=== PATIENT | female | born 1990 | race Hispanic/Latino ===

== ENCOUNTER 2017-08-10 21:53 | Inpatient (IN) | payer BC ==
[2017-08-10] MEDS ORDERED: LACTATED RINGERS 1,000 ML ONE (22:33)
[2017-08-10] MEDS ORDERED: ZOFRAN IV PRN (22:39)
[2017-08-10] MEDS ORDERED: XYLOCAINE 2% INFILTRATI ONE (22:39)
[2017-08-10] MEDS ORDERED: BRETHINE SUB-Q PRN (22:39)
[2017-08-10] MEDS ORDERED: BRETHINE IVP PRN (22:39)
[2017-08-10] MEDS ORDERED: ePHEDrine SULFATE IV PRN ×2 (22:39→23:28)
[2017-08-10] MEDS ORDERED: MINERAL OIL PO PRN (22:39)
[2017-08-10] MEDS ORDERED: STADOL IV PRN (22:39)
[2017-08-10] MEDS ORDERED: SUBLIMAZE IV PRN (22:39)
[2017-08-10] MEDS ORDERED: NARCAN 0.4 MG/1 ML IV PRN (22:39)
[2017-08-10] MEDS: LACTATED RINGERS 1,000 ML IV SCH ×2 (22:45→23:35)
[2017-08-10 22:56] LABS: Hematocrit 36.7 % (30.3-42.9); Hemoglobin 12.4 gm/dl (10.1-14.3); Mean Corpuscular HGB Conc 34 % (30-34); Mean Corpuscular Hemoglobin 32 pg (28-32); Mean Corpuscular Volume 94 fl (79-97); Platelet Count 144 K/mm3 (140-440); Red Blood Count 3.92 M/mm3 (3.65-5.03); Red Cell Distribution Width 14.7 % (13.2-15.2)
[2017-08-10] MEDS ORDERED: PITOCin/NS 20 UNIT/1000ML DRIP 20 UNITS/1,000 ML BAG IV SCH (23:00)
[2017-08-10] MEDS ORDERED: PITOCin/NS 30 UNIT/500ML 30 UNITS/500 ML BAG IV SCH (23:00)
[2017-08-10] MEDS ORDERED: NARCAN 2 MG/2 ML IV PRN (23:28)
[2017-08-10] MEDS ORDERED: fentaNYL-BUPIV 2 MCG/ML-0.125% 200 MCG/100 ML BAG EPIDURAL SCH (23:45)
--- NOTE | 2017-08-11 00:03 | History and Physical Report ---
History of Present Illness Date of examination: 08/10/17 Date of admission: 08/10/17 22:52 Chief complaint: contractions History of present illness: Pt is a 26 year old ALVARADO 08/18/17 at 38w6d who presents with contractions since this evening and was noted to be 5 cm dilated. She denies vaginal bleeding or leakage of fluid. She has had care at [facility] with Dr Katey Gómez that has been uncomplicated. She is GBS negative. Past History Past Surgical History: breast surgery (breast augmentation ), other (wisdom tooth extraction ) Family/Genetic History: none Social history: no significant social history, - Obstetrical History Expected Date of Delivery: 08/18/17 Actual Gestation: 39 Week(s) 0 Day(s) : 3 Para: 2 Hx # Term Pregnancies: 2 Number of Pregnancies: 0 Spontaneous Abortions: 0 Induced : 0 Number of Living Children: 2 Medications and Allergies Allergies Allergy/AdvReac Type Severity Reaction Status Date / Time Fish Containing Products Allergy Anaphylaxis Verified 08/10/17 22:06 Active Meds: Active Medications Butorphanol Tartrate (Stadol) 2 mg IV Q2H PRN PRN Reason: Pain , Severe (7-10) Ephedrine Sulfate (Ephedrine Sulfate) 10 mg IV Q2M PRN PRN Reason: Hypotension Fentanyl (Sublimaze) 100 mcg IV Q2H PRN PRN Reason: Labor Pain Last Admin: 08/10/17 22:55 Dose: 100 mcg Lactated Ringer's (Lactated Ringers) 1,000 mls @ 125 mls/hr IV DIRECT EMELIA Last Admin: 08/10/17 23:35 Dose: 999 mls/hr Oxytocin/Sodium Chloride (Pitocin/Ns 20 Unit/1000ml Drip) 20 units in 1,000 mls @ 125 mls/hr IV DIRECT EMELIA Oxytocin/Sodium Chloride (Pitocin/Ns 30 Unit/500ml) 30 units in 500 mls @ 4 mls /hr IV TITR EMELIA; Protocol Fentanyl/Bupivacaine/Sodium Chlor (Fentanyl-Bupiv 2 Mcg/Ml-0.125%) 200 mcg in 100 mls @ 12 mls/hr EPIDURAL TITR EMELIA; Protocol Mineral Oil (Mineral Oil) 30 ml PO QHS PRN PRN Reason: Constipation Naloxone HCl (Narcan 0.4 Mg/1 Ml) 0.1 mg IV Q2MIN PRN PRN Reason: Res Rate </= 8 or 02 SAT < 92% Naloxone HCl (Narcan 2 Mg/2 Ml) 0.2 mg IV Q5M PRN PRN Reason: Respiratory sedation Ondansetron HCl (Zofran) 4 mg IV Q8H PRN PRN Reason: Nausea And Vomiting Terbutaline Sulfate (Brethine) 0.25 mg SUB-Q ONCE PRN PRN Reason: Hyperstimulation/Hypertonicity Terbutaline Sulfate (Brethine) 0.25 mg IVP ONCE PRN PRN Reason: Hyperstimulation/Hypertonicity Review of Systems All systems: negative - Vital Signs Vital signs: Vital Signs Pulse BP 82 121/74 08/10/17 22:12 08/10/17 22:12 Temp Pulse Resp BP Pulse Ox 96.9 F L 93 H 22 124/65 100 08/10/17 22:58 08/11/17 00:01 08/10/17 22:58 08/11/17 00:01 08/10/17 23:56 - Physical Exam Breasts: Positive: deferred Cardiovascular: Regular rate Lungs: Positive: Clear to auscultation Abdomen: Positive: soft (gravid ) Genitourinary (Female): Positive: normal external genitalia Uterus: Positive: enlarged (gravid ) Extremities: Positive: normal - Obstetrical FHR: category 1 Uterine Contraction Monitor Mode: External Cervical Dilatation: 9 Cervical Effacement Percentage: 100 station: 0 Uterine Contraction Frequency (min): 3-4 Uterine Contraction Pattern: Regular Uterine Tone Measurement Phase: Resting Uterine Contraction Intensity: Strong/Firm Results Result Diagrams: 08/10/17 22:48 All other labs normal. Assessment and Plan A: IUP at 39w0d Active labor GBS negative AROM- meconium P: Admit to labor and delivery. Routine intrapartum care. Closely monitor maternal and status.
--- NOTE | 2017-08-11 00:23 | Event Note ---
Date: 08/11/17 Pt more comfortable with epidural. Cervix anterior lip/0 station. Continue routine intrapartum management. NICU aware of meconium.
--- NOTE | 2017-08-11 01:00 | Procedure Note ---
OB Delivery Note - Delivery Date of Delivery: 08/11/17 Surgeon: AIDEN SALMERON Estimated blood loss: other (400 mL) - Vaginal Delivery presentation: vertex Delivery position: OA Intrapartum events: PROM->1hr before delivery, meconium Delivery induction: none Delivery augmentation: rupture of membranes, pitocin Delivery monitor: external FHT, external uterine Route of delivery: Delivery placenta: spontaneous Episiotomy: none Delivery laceration: none Anesthesia: epidural Delivery comments: Pt progressed to complete/complete/+3 and pushed to deliver a viable female over intact perineum under epidural anesthesia via . Head delivered rapidly followed by shoulders and body. Spontaneous cry. Delayed cord clamp per maternal preference. Cord then clamped and cut and handed to nurse in attendance. Placenta delivered spontaneously. Vagina and perineum explored. No lacerations noted. EBL 400 mL. - A at 1 minute: 8 at 5 minutes: 9 Gender: Female (3702g (8lb 3oz) @ 0040 am)
[2017-08-11] MEDS ORDERED: PITOCin/NS 20 UNIT/1000ML DRIP 20 UNITS/1,000 ML BAG IV SCH (04:07)
[2017-08-11] MEDS ORDERED: TYLENOL PO PRN (04:07)
[2017-08-11] MEDS ORDERED: BENADRYL PO PRN (04:07)
[2017-08-11] MEDS ORDERED: TUCKS PAD TP PRN (04:07)
[2017-08-11] MEDS ORDERED: DERMOPLAST TP PRN (04:07)
[2017-08-11] MEDS ORDERED: PHENERGAN PO PRN (04:07)
[2017-08-11] MEDS ORDERED: NORCO 5/325 PO PRN (04:07)
[2017-08-11] MEDS ORDERED: LANSINOH TP PRN ×2 (04:07)
[2017-08-11] MEDS ORDERED: MILK OF MAGNESIA PO PRN (04:07)
[2017-08-11] MEDS ORDERED: SODIUM CHLORIDE FLUSH SYRINGE 10 ML IV NR (04:07)
[2017-08-11] MEDS ORDERED: PHENERGAN PR PRN (04:07)
[2017-08-11] MEDS ORDERED: ZOFRAN IV PRN (04:07)
[2017-08-11] MEDS ORDERED: DULCOLAX PR PRN (04:07)
[2017-08-11] MEDS: MOTRIN PO SCH ×3 (05:00→18:56)
[2017-08-11] MEDS: FEOSOL PO SCH (10:59)
[2017-08-11 13:49] LABS: Hematocrit 30.5 % (30.3-42.9); Hemoglobin 10.6 gm/dl (10.1-14.3)
[2017-08-12] MEDS: MOTRIN PO SCH ×2 (00:42→06:21)
[2017-08-12] MEDS: FEOSOL PO SCH (00:43)
[2017-08-12] MEDS ORDERED: M-M-R II VACCINE SUB-Q ONE (06:00)
[2017-08-12] MEDS ORDERED: BOOSTRIX IM ONE (06:00)
[2017-08-12 09:31] VITALS: BP 103/62
--- NOTE | 2017-08-12 12:06 | Progress Note ---
Assessment and Plan A: PPD#1 s/p P: Discharge home per pt request. Subjective - Subjective Date of service: 08/12/17 Principal diagnosis: s/p at term Interval history: No overnight events. Pt asks to be discharged home. Patient reports: appetite normal, voiding normally, pain well controlled, ambulating normally, no dizzy ambulation [place]: doing well Objective - Vital Signs Latest vital signs: Vital Signs Temp Pulse Resp BP BP Pulse Ox 08/12/17 08:28 98.0 F 72 18 103/62 99 08/12/17 00:40 97.4 F L 72 16 99/63 98 08/11/17 15:42 98.0 F 70 18 113/71 98 08/11/17 12:30 98.4 F 87 18 115/74 98 Intake and Output 08/11/17 08/12/17 08/12/17 22:59 06:59 14:59 Intake Total 400 Balance 400 Intake: Oral 400 Other: Total, Intake Amount 200 # Voids Indwelling Catheter 1 - Exam Breasts: Present: deferred Cardiovascular: Present: Regular rate Lungs: Present: Clear to auscultation Abdomen: Present: soft Uterus: Present: fundal height below umbilicus Extremities: Present: normal
--- NOTE | 2017-08-12 12:08 | Discharge Summary ---
Providers - Providers Date of Admission: 08/10/17 22:52 Date of discharge: 08/12/17 Attending physician: AURORA MOBLEY 08/11/17 04:07 Consult to Rn Complex Care [CONS] Routine Reason For Exam: assistance with , SNS Primary care physician: AURORA MOBLEY Hospitalization Reason for admission: active labor Delivery: Procedure details: Please see delivery note. Episiotomy: none Laceration: none Other procedures: none complications: none Discharge diagnosis: IUP at term delivered baby: female Hospital course: Pt was admitted in active labor and went on to have an which she tolerated well. Her course was uncomplicated and she met discharge criteria on PPD#1. Condition at discharge: Stable Disposition: DC-01 TO HOME OR SELFCARE - Discharge Diagnoses (1) Term of female Status: Acute Plan - Discharge Medications Prescriptions: HYDROcodone/ACETAMINOPHEN [[place] 5-325 Tablet] 1 each PO Q6H PRN #20 tablet PRN Reason: Pain Ibuprofen [Motrin] 800 mg PO Q8HR PRN #30 tablet PRN Reason: Pain - Provider Discharge Summary Activity: routine, no sex for 6 weeks, no heavy lifting 4 weeks, no strenuous exercise Diet: routine Instructions: routine Additional instructions: [] Smoking cessation referral if applicable(refer to patient education folder for contact #) [] Refer to [facility] Booklet Call your doctor immediately for: * Fever > 100.5 * Heavy vaginal bleeding ( >1 pad per hour) * Severe persistent headache * Shortness of breath * Reddened, hot, painful area to leg or breast * Drainage or odor from incision. * Keep incision clean and dry at all times and follow doctor's instructions regarding bathing/showering - Follow up plan Follow up: AURORA MOBLEY MD [Primary Care Provider] - 6 Weeks (please call to schedule your appt )
== END 2017-08-12 13:45 | disposition home or self-care (01) | DRG 775 ==
LOC: TRG 21:53 → LD 22:52 → OB 08-11 03:18
PROVIDERS: ADMIT Obstetrics & Gynecology; ATTEND Obstetrics & Gynecology
PROC: 10E0XZZ Delivery of Products of Conception, External Approach (ICD-10-PCS; principal; 2017-08-11)
PROC: 3E0R3BZ Introduction of Anesthetic Agent into Spinal Canal, Percutaneous Approach (ICD-10-PCS; 2017-08-11)
PROC: 00HU33Z Insertion of Infusion Device into Spinal Canal, Percutaneous Approach (ICD-10-PCS; 2017-08-11)
PROC: 3E0234Z Introduction of Serum, Toxoid and Vaccine into Muscle, Percutaneous Approach (ICD-10-PCS; 2017-08-12)
DX: O77.0 Labor and delivery complicated by meconium in amniotic fluid (principal); O42.02 Full-term premature rupture of membranes, onset of labor within 24 hours of rupture; Z3A.39 39 weeks gestation of pregnancy; Z37.0 Single live birth; Z23 Encounter for immunization
CPT/HCPCS: 36415; 85014; 85018; 85027; 86592; 86850; 86900; 86901; 88307; A6250; J2590; J3010; J7120